=== PATIENT | female | born 1980 | race African-American/Black ===

== ENCOUNTER 2018-05-11 21:10 | Emergency (ER) | payer MEDICAID ==
--- NOTE | 2018-05-11 23:20 | ED ---
Abdominal Pain/Female - HPI Summary HPI Summary: Patient is a 38-year-old female who presents emergency department for intermittent, diffuse abdominal pain over the last 2-3 days. Patient is concerned she may be . She did take 2 negative tests at home. Patient states she has not had a period since the end of February does note she has irregular menstrual cycles. Patient also notes soreness to her breasts. Denies associated symptoms of vomiting, nausea, diarrhea, cough palpation, urinary symptoms, vaginal bleeding or discharge, fever, URI symptoms. Patient states she is a psychiatric history otherwise denies past medical history. Symptoms are moderate in severity. No current modifying factors. Patient states she currently has 0 pain in the ER. - History of Current Complaint Chief Complaint: EDAbdPain Stated Complaint: POSS PREG Time Seen by Provider: 05/11/18 23:03 Hx Obtained From: Patient Pain Intensity: 1 Allergies/Adverse Reactions: Allergies Allergy/AdvReac Type Severity Reaction Status Date / Time No Known Allergies Allergy Verified 05/11/18 21:16 Home Medications: Home Medications NK [No Home Medications Reported] 05/11/18 [History Confirmed 05/11/18] PMH/Surg Hx/FS Hx/Imm Hx Previously Healthy: Yes Infectious Disease History: No Infectious Disease History: Denies: Traveled Outside the [place] in Last 30 Days - Social History Occupation: Unemployed Lives: [place] Review of Systems Constitutional: Negative Negative: Fever, Chills Eyes: Negative ENT: Negative Cardiovascular: Negative Respiratory: Negative Positive: Abdominal Pain - Intermittent. Negative: Vomiting, Diarrhea, Nausea Genitourinary: Negative Negative: burning, dysuria, discharge, frequency, flank pain, hematuria All Other Systems Reviewed And Are Negative: Yes Physical Exam Triage Information Reviewed: Yes Vital Signs On Initial Exam: Initial Vitals Temp Pulse Resp BP Pulse Ox 98.4 F 102 16 120/92 99 05/11/18 21:12 05/11/18 21:12 05/11/18 21:12 05/11/18 21:12 05/11/18 21:12 Vital Signs Reviewed: Yes Appearance: Positive: Well-Appearing - Pt. lying in bed in no acute distress. Reading a book. Skin: Positive: Warm, Dry Head/Face: Positive: Normal Head/Face Inspection Eyes: Positive: Normal, EOMI Neck: Positive: Supple Respiratory/Lung Sounds: Positive: Clear to Auscultation, Breath Sounds Present Cardiovascular: Positive: Normal, RRR Abdomen Description: Positive: Other: - Abdomen is soft nontender throughout. Neurological: Positive: Normal, CN Intact II-III Psychiatric: Positive: Affect/Mood Appropriate Diagnostics - Vital Signs Vital Signs Temp Pulse Resp BP Pulse Ox 05/11/18 21:12 98.4 F 102 16 120/92 99 - Laboratory Result Diagrams: 05/11/18 23:32 05/11/18 23:32 Lab Statement: Any lab studies that have been ordered have been reviewed, and results considered in the medical decision making process. Abdominal Pain Fem Course/Dx - Course Course Of Treatment: Patient presenting with complaints of diffuse intermittent abdominal tenderness. Afebrile with stable vital signs. On exam patient has no reproducible pain. Will obtain basic labs and . Negative . CBC and CMP are unremarkable. Results discussed with pt. She currently has no abd. pain or complaints in ER. Will have pt. f.u in the [facility]. To return to ER if sxs change or worsen. - Diagnoses Differential Diagnosis: Positive: Appendicitis, Constipation, Ectopic , , Urinary Tract Infection Provider Diagnoses: Amenorrhea Discharge - Sign-Out/Discharge Documenting (check all that apply): Patient Departure - Discharge Plan Condition: Good Disposition: HOME Patient Education Materials: Abdominal Pain (ED) Referrals: [facility] [Outside] No Primary Care Phys,NOPCP [Primary Care Provider] - Additional Instructions: Call the [facility] to schedule a follow up appointment Return to ER if symptoms change or worsen - Billing Disposition and Condition Condition: GOOD Disposition: Home
[2018-05-11 23:58] LABS: ABS Basophils 0.1 10^3/ul (0-0.2); ABS Eosinophils 0.1 10^3/ul (0-0.6); ABS Lymphocytes 1.8 10^3/ul (1.0-4.8); ABS Monocytes 0.6 10^3/ul (0-0.8); ABS Neutrophils 2.4 10^3/ul (1.5-7.7); ABS Nucleated RBC 0 10^3/ul; Eosinophil % 1.6 % (0-6); Hematocrit 38 % (35-47); Hemoglobin 12.7 g/dl (12.0-16.0); Lymphocyte % 36.8 % (25-47); Mean Corpuscular HGB Conc 34 g/dl (31-36); Mean Corpuscular Hemoglobin 31 pg (27-31); Mean Corpuscular Volume 91 fL (80-97); Mean Platelet Volume 6.7 um3 (7.4-10.4); Nucleated Red Blood Cells % 0.1; Platelet Count 226 10^3/ul (150-450); Red Blood Count 4.14 10^6/ul (4.00-5.40); Red Cell Distribution Width 14 % (10.5-15)
[2018-05-12 00:01] LABS: EGFR Non-African American 70.2 (>60)
[2018-05-12 00:52] VITALS: BP 138/74
== END 2018-05-12 00:51 | disposition home or self-care (01) ==
LOC: ED 21:10
DX: N91.2 Amenorrhea, unspecified (principal)
CPT/HCPCS: 36415; 80053; 83690; 84702; 85025; 99281